=== PATIENT | female | born 1985 | race Caucasian/White ===

== ENCOUNTER 2021-07-17 08:50 | Emergency (ER) | payer BC, OTHER ==
[~2021-07-17] VITALS: Ht 175.3 cm; Wt 131.9 kg
[2021-07-17] MEDS ORDERED: ASPIRIN CHEWABLE 81 MG TABLET. PO ONE ×2 (09:15→11:15)
--- NOTE | 2021-07-17 09:19 | EKG ---
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
[2021-07-17] MEDS ORDERED: METOPROLOL TARTRATE 5 MG/5 ML VIAL. ONE (09:28)
--- NOTE | 2021-07-17 09:28 | PHYS DOC ---
Past History Past Medical History: No Pertinent History Past Surgical History: No Surgical History Smoking: Non-smoker Alcohol Use: Rarely Drug Use: None Adult General Chief Complaint Chief Complaint: CHEST PAIN HPI HPI Patient is a 35-year-old female presenting for palpitations. Reports she is otherwise healthy, no significant past medical issues, had history of taking OCPs but stopped this several months ago. Reports yesterday morning waking up and feeling heaviness in her chest, reports she was experiencing constant palpitations and has been fatigued and at times lightheaded and dizzy. Symptoms were constant since onset yesterday morning. She has never encountered an episode like this before. No tobacco, alcohol or other illicit drug use. No significant past medical history of early cardiac disease in family. She reports having thyroid checked in the past, there is question whether it was abnormal but she has never received medication for this. Review of Systems Review of Systems Fourteen body systems of review of systems have been reviewed. See HPI for pertinent positives and negative responses, other villaseñor all other systems are negative, non-pertinent or non-contributory Current Medications Current Medications Current Medications Medications (Trade) Dose Ordered Sig/Anthony Start Time Stop Time Status Last Admin Dose Admin Aspirin (Aspirin Chewable) 324 mg 1X ONCE 07/17/21 09:15 07/17/21 09:16 Fentanyl Citrate (Fentanyl 2ml Vial) 50 mcg 1X ONCE 07/17/21 09:30 07/17/21 09:31 UNV Allergies Allergies Allergies Coded Allergies Type Severity Reaction Last Updated Verified No Known Drug Allergies 07/17/21 No Physical Exam Physical Exam Constitutional: Well developed, well nourished, no acute distress, non-toxic appearance. HENT: Normocephalic, atraumatic, bilateral external ears normal, oropharynx moist, no oral exudates, nose normal. Eyes: PERRLA, EOMI, conjunctiva normal, no discharge. Neck: Normal range of motion, no tenderness, supple, no stridor. Cardiovascular: Heart rate tachycardic and irregular, no murmurs rubs or gallops Lungs & Thorax: Bilateral breath sounds clear to auscultation Abdomen: Bowel sounds normal, soft, no tenderness, no masses, no pulsatile masses. Nonsurgical abdomen, no peritoneal signs Skin: Warm, dry, no erythema, no rash. Back: No tenderness, no CVA tenderness. Extremities: No tenderness, no cyanosis, no clubbing, ROM intact, no edema. Neurologic: Alert and oriented X 3, grossly normal motor & sensory function, no focal deficits noted. Psychologic: Tearful affect, anxious mood Current Patient Data Vital Signs Vital Signs Date Time Temp Pulse Resp B/P (MAP) Pulse Ox O2 Delivery O2 Flow Rate FiO2 07/17/21 08:50 98.2 170 18 86/43 99 Room Air Vital Signs Date Time Temp Pulse Resp B/P (MAP) Pulse Ox O2 Delivery O2 Flow Rate FiO2 07/17/21 10:17 83 14 114/66 (82) 97 High Flow Nasal Cannula 07/17/21 08:50 98.2 Lab Results Laboratory Tests Test 07/17/21 09:18 White Blood Count 11.1 x10^3/uL Red Blood Count 4.61 x10^6/uL Hemoglobin 13.1 g/dL Hematocrit 39.4 % Mean Corpuscular Volume 86 fL Mean Corpuscular Hemoglobin 28 pg Mean Corpuscular Hemoglobin Concent 33 g/dL Red Cell Distribution Width 13.9 % Platelet Count 302 x10^3/uL Neutrophils (%) (Auto) 54 % Lymphocytes (%) (Auto) 36 % Monocytes (%) (Auto) 8 % Eosinophils (%) (Auto) 1 % Basophils (%) (Auto) 0 % Neutrophils # (Auto) 6.0 x10^3uL Lymphocytes # (Auto) 4.0 x10^3/uL Monocytes # (Auto) 0.9 x10^3/uL Eosinophils # (Auto) 0.1 x10^3/uL Basophils # (Auto) 0.0 x10^3/uL D-Dimer (Eleni) 0.35 mg/L Sodium Level 142 mmol/L Potassium Level 3.5 mmol/L Chloride Level 106 mmol/L Carbon Dioxide Level 28 mmol/L Anion Gap 8 Blood Urea Nitrogen 10 mg/dL Creatinine 0.8 mg/dL Estimated GFR (Cockcroft-Gault) 82.6 BUN/Creatinine Ratio 13 Glucose Level 111 mg/dL Calcium Level 8.4 mg/dL Magnesium Level 2.0 mg/dL Total Bilirubin 0.7 mg/dL Aspartate Amino Transf (AST/SGOT) 20 U/L Alanine Aminotransferase (ALT/SGPT) 29 U/L Alkaline Phosphatase 142 U/L Troponin I Quantitative < 0.017 ng/mL AC-Omb-E-Type Natriuretic Peptide 2820 pg/mL Total Protein 7.2 g/dL Albumin 3.5 g/dL Albumin/Globulin Ratio 0.9 Current Medications Medications (Trade) Dose Ordered Sig/Anthony Route PRN Reason Start Time Stop Time Status Last Admin Dose Admin Aspirin (Aspirin Chewable) 324 mg 1X ONCE PO 07/17/21 09:15 07/17/21 09:21 DC 07/17/21 09:26 Fentanyl Citrate (Fentanyl 2ml Vial) 50 mcg 1X ONCE IVP 07/17/21 09:30 07/17/21 09:31 DC 07/17/21 09:27 Etomidate (Amidate) 20 mg 1X ONCE INJ 07/17/21 09:30 07/17/21 09:31 DC 07/17/21 10:16 Metoprolol Tartrate (Lopressor Vial) 5 mg STK-MED ONCE .ROUTE 07/17/21 09:28 07/17/21 09:28 DC Metoprolol Tartrate (Lopressor Vial) 5 mg 1X ONCE IV 07/17/21 09:30 07/17/21 09:54 DC 07/17/21 09:37 Metoprolol Tartrate (Lopressor Vial) 5 mg 1X ONCE IV 07/17/21 09:45 07/17/21 09:54 DC 07/17/21 09:50 Metoprolol Tartrate (Lopressor Vial) 5 mg 1X ONCE IV 07/17/21 10:00 07/17/21 10:01 DC 07/17/21 09:52 EKG EKG EKG ordered and interpreted by myself at 092 7 hours as atrial fibrillation with RVR at 157 bpm, unremarkable intervals, no axis deviation, T wave inversion noted in lead III otherwise no acute ischemic findings, no STEMI Repeat EKG ordered and interpreted by myself after synchronized cardioversion at 1016 hrs. as sinus rhythm at 79 bpm, unremarkable intervals, no axis deviation, no acute ischemic findings, no STEMI Radiology/Procedures Radiology/Procedures EXAM: XR CHEST 1V 07/17/2021 9:20 AM CLINICAL INDICATION: Shortness of breath COMPARISON: None TECHNIQUE: AP upright view of the chest FINDINGS: The cardiomediastinal silhouette is normal. There is hazy opaci fication in the mid to lower lungs, likely due to superimposed soft tissue. No definite consolidation, pleural effusion, or pneumothorax. No acute osseous abnormality. IMPRESSION: No definite acute abnormality. Hazy opacification in the lung bases is likely due to superimposed soft tissue. Electronically signed by: Chayo Leon MD (07/17/2021 9:28 AM) [id number] Heart Score C/O Chest Pain: No HEART Score for Chest Pain: HEART Score for Chest Pain Response (Comments) Value History Moderately Suspicious 1 ECG Nonspecific Repolarizatio 1 Age < 45 0 Risk Factors 1 or 2 Risk Factors 1 Troponin < Normal Limit 0 Total 3 Risk Factors: Risk Factors: DM, Current or recent (<one month) smoker, HTN, HLP, family history of CAD, obesity. Risk Scores: Risk Factors: DM, Current or recent (<one month) smoker, HTN, HLP, family history of CAD, obesity. Course & Med Decision Making Course & Med Decision Making Airway patent, breathing unlabored, IV access and vitals obtained concerning for atrial fibrillation with RVR which was later confirmed by EKG No obvious identifiable causes based on history and physical examination. IV Lopressor 5 mg x 3 did not successfully convert rhythm. Verbal and written consent obtained for synchronized electric cardioversion which was performed and successfully converted patient back to normal sinus Patient monitored for 1 hour after moderate sedation and at baseline mentation/respiratory status that was confirmed by patient and at [facility] e. Patient asymptomatic. Cardiology services contacted and recommended aspirin and Toprol ER with instructions for outpatient echocardiogram and compliance monitor. She is pending TSH and PCR COVID-19 testing at end of ER visit Joint decision among all to discharge home given asymptomatic state of patient. Strict return precautions were discussed with good understanding. All questions and concerns addressed prior to ER departure Critical Care Time This patient required critical care. Due to the fact that the patient required a significant amount of one on one physician - patient contact time, ordering and review of studies, arranging urgent treatment with development of a management plan, evaluation of patients response to treatment with frequent reassessments, and discussions with other providers this patient required 40 minutes of critical care time. Critical care time was indicated due to the inherent instability and/or potential for instability in this patient. The critical care time that is allocated to this patient is above and beyond any time spent on any other billable procedures performed on this patient. Dragon Disclaimer Dragon Disclaimer This electronic medical record was generated, in whole or in part, using a voice recognition dictation system. Departure Departure: Impression: Primary Impression: Atrial fibrillation with RVR Disposition: HOME / SELF CARE / HOMELESS Condition: IMPROVED Referrals: TAHIR MACDONALD MD (PCP) BASHIR PENNINGTON MD Patient Instructions: Atrial Fibrillation Additional Instructions: As discussed prior to ER departure, you presented with an irregular heart rhythm and rate known as atrial fibrillation with rapid ventricular response. You did not respond to medications given and so, synchronized electric cardioversion was performed and successfully converted your rhythm back to normal sinus. Your condition was reviewed with cardiology services at [facility] and they agreed to ER intervention and work-up that was grossly unremarkable for any emergent or surgical issues. Given that you are young and in good health, decision was made to start you on low-dose 81 mg aspirin and heart rate controlling medication daily. The cardiology team should be contacting you to set up outpatient follow-up. I have attached their information to this dis charge packet. I recommend you call them immediately after ER departure and review your work-up today. You will be scheduled for an echocardiogram and also will be scheduled to receive a compliance monitor for home use until you can be seen by the telephone exchange operator in the clinic. If any concerning signs or symptoms present prior to outpatient follow-up please do not hesitate to come back for repeat evaluation. It was a pleasure to take care of you and I wish you the best going forward Scripts Metoprolol Succinate (TOPROL XL) 25 Mg Tab.er.24h 1 TAB PO DAILY for HEART RATE CONTROL for 30 Days, #30 TAB 0 Refills Prov: ALEXANDER RODRIGUEZ DO 07/17/21 Aspirin (ASPIRIN) 81 Mg Tab.chew 81 MG PO DAILY for AFIB for 90 Days, #90 TAB Prov: ALEXANDER RODRIGUEZ DO 07/17/21 Additional Procedures Additional Procedures : Additional Procedures: cardioversion/defib Progress Verbal and written consent obtained. Timeout performed. 50 mcg fentanyl and subsequent 20 etomidate administered for pain and sedation purposes. Synchronized cardioversion at 200 J delivered with immediate conversion of patient's atrial fibrillation with RVR back to normal sinus rhythm. Patient tolerated procedure well without any reported nor observed complications. Repeat EKG obtained confirming normal sinus rhythm. Patient monitored for greater than 1 hour after sedation medication and after numerous assessments by various healthcare providers and , all deemed safe for departure home MODERATE SEDATION ASSESSMENT RISKS/ALTERNATIVES Risks/Alternatives Risks and alternatives of this type of sedation and procedure discussed with: RISK/ALTERNATIVES DISCUSSED: Patient H & P ON CHART H & P H & P on chart and reviewed for co-morbid conditions and appropriate labs. H&P ON CHART: Yes STATUS PREG STATUS ASSESSED: Yes MEDS/ALLERGIES REVIEWED Meds/Allergies Reviewed Medications and Allergies including time and route of recently administered narcotics and sedatives. MEDS/ALLERGIES REVIEWED: Yes ASA RATING ASA RATING: II AIRWAY ASSESSMENT Airway Assessment Airway patency, oral function limitations, presence of caps, crowns, dentures, partials, and ability to extend neck assessed. AIRWAY ASSESSMENT: Yes MALLAMPATI SCORE MALLAMPATI SCORE: II PRE-SEDATION ASSESSMENT PRE-SEDATION PHYSICAL: Yes ALEXANDER RODRIGUEZ DO Jul 17, 2021 09:28
[2021-07-17] MEDS ORDERED: ETOMIDATE 40 MG/20 ML VIAL. INJ ONE (09:30)
[2021-07-17] MEDS ORDERED: METOPROLOL TARTRATE 5 MG/5 ML VIAL. IV ONE ×3 (09:30→10:00)
--- NOTE | 2021-07-17 09:30 | RAD ---
EXAM: XR CHEST 1V 07/17/2021 9:20 AM CLINICAL INDICATION: Shortness of breath COMPARISON: None TECHNIQUE: AP upright view of the chest FINDINGS: The cardiomediastinal silhouette is normal. There is hazy opacification in the mid to lowe r lungs, likely due to superimposed soft tissue. No definite consolidation, pleural effusion, or pneu mothorax. No acute osseous abnormality. IMPRESSION: No definite acute abnormality. Hazy opacification in the lung bases is likely due to sup erimposed soft tissue. Electronically signed by: Chayo Leon MD (07/17/2021 9:28 AM) [id number]
[2021-07-17 09:39] LABS: BASO % 0 % (0-3); EOS # 0.1 x10^3/uL (0.0-0.7); EOS % 1 % (0-3); HEMATOCRIT 39.4 % (36.0-47.0); HEMOGLOBIN 13.1 g/dL (12.0-15.5); LYMPH % 36 % (24-48); MEAN CORPUSCULAR HEMOGLOBIN 28 pg (25-35); MEAN CORPUSCULAR HGB CONC 33 g/dL (31-37); MEAN CORPUSCULAR VOLUME 86 fL (79-100); MONO # 0.9 x10^3/uL (0.0-1.1); MONO % 8 % (0-9); NEUT % 54 % (31-73); PLATELET COUNT 302 x10^3/uL (140-400); RED BLOOD COUNT 4.61 x10^6/uL (3.50-5.40); RED CELL DISTRIBUTION WIDTH 13.9 % (11.5-14.5); WHITE BLOOD COUNT 11.1 x10^3/uL (4.0-11.0)
[2021-07-17 09:56] LABS: CALCIUM 8.4 mg/dL (8.5-10.1); CREATININE 0.8 mg/dL (0.6-1.0); GFR 82.6; POTASSIUM 3.5 mmol/L (3.5-5.1)
[2021-07-17 10:09] LABS: ALBUMIN 3.5 g/dL (3.4-5.0); ALBUMIN/GLOBULIN RATIO 0.9 (1.0-1.7); TOTAL BILIRUBIN 0.7 mg/dL (0.2-1.0); TOTAL PROTEIN 7.2 g/dL (6.4-8.2)
--- NOTE | 2021-07-17 10:22 | EKG ---
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
[2021-07-17 11:14] LABS: BARBITURATES NEG (NEG); BENZODIAZEPINES NEG (NEG); CANNABINOIDS NEG (NEG); COCAINE NEG (NEG); METHADONE NEG (NEG); OPIATES NEG (NEG); PHENCYCLIDINE NEG (NEG)
[2021-07-17] MEDS ORDERED: METOPROLOL SUCC 24HR ER 25 MG TAB.ER.24H. PO ONE (11:15)
[2021-07-17] MEDS ORDERED: METO25TA2 PO (11:16)
[2021-07-17] MEDS ORDERED: ASPI-630 PO (11:16)
[2021-07-17 11:17] LABS: AMPHETAMINE/METHAMPHETAMINE NEG (NEG)
[2021-07-17 11:45] VITALS: BP 123/73
== END 2021-07-17 11:55 | disposition home or self-care (01) ==
LOC: ER 08:50
DX: I48.20 Chronic atrial fibrillation, unspecified (principal); R42 Dizziness and giddiness; Z20.822 Contact with and (suspected) exposure to COVID-19
CPT/HCPCS: 36415; 71045; 80053; 80307; 83735; 83880; 84443; 84484; 85025; 85379; 93005; 96374; 96375; 99285; C9803; J3010; J3490; U0003

== ENCOUNTER → 2021-07-18 | Outpatient (CLI) | payer BC ==
[2021-07-17 11:45] VITALS: BP 123/73
[~2021-07-18] MED LIST: ASPI-630 PO; METO25TA2 PO
--- NOTE | 2021-07-19 09:00 | CARD ---
MR#: [id number] Date of Study: 07/18/2021 Ordering Physician: BASHIR MA, Referring Physician: BASHIR MA, Tech: Arely Velasquez, [facility] APPROVED REPORT EXAM: Two-dimensional and M-mode echocardiogram with Doppler and color Doppler. Other Information Quality : AverageHR: 72bpm INDICATION Atrial Fibrillation 2D DIMENSIONS RVDd3.7 (2.9-3.5cm)Left Atrium(2D)3.6 (1.6-4.0cm) IVSd0.8 (0.7-1.1cm)Aortic Root(2D)2.7 (2.0-3.7cm) LVDd4.5 (3.9-5.9cm)LVOT Diameter2.1 (1.8-2.4cm) PWd0.9 (0.7-1.1cm)LVDs2.5 (2.5-4.0cm) FS (%) 43.9 %SV69.6 ml LVEF(%)75.3 (>50%) Aortic Valve AoV Peak Werner.132.0cm/sAoV VTI26.9cm AO Peak GR.7.0mmHgLVOT Peak Werner.111.5cm/s LVOT VTI 23.26cmAO Mean GR.4mmHg CARLOS (VMAX)2.01ol4HLB (VTI)2.96cm2 Mitral Valve MV E Kdjxwwgb06.9cm/sMV E Peak Gr.3mmHg MV DECEL [id number] A Zrpuvwvi81.0cm/s MV E Mean Gr.2mmHgE/A Ratio1.5 Pulmonary Valve PV Peak Mwzbwqfi726.5cm/sPV Peak Grad.4mmHg Tricuspid Valve TR P. Vaavubpn603fs/sRAP [id number] TR Peak Gr.51ntCuJKDP46ygAe LEFT VENTRICLE The left ventricle is normal size. There is normal left ventricular wall thickness. The left ventricu lar systolic function is normal and the ejection fraction is within normal range. The Ejection Fracti on is 55-60%. There is normal LV segmental wall motion. The left ventricular diastolic function and f illing is normal for age. RIGHT VENTRICLE The right ventricle is normal size. There is normal right ventricular wall thickness. The right ventr icular systolic function is normal. ATRIA The left atrium size is normal. The right atrium size is normal. The interatrial septum is intact wit h no evidence for an atrial septal defect or patent foramen ovale as noted on 2-D or Doppler imaging. AORTIC VALVE The aortic valve is normal in structure and function. Doppler and Color Flow revealed no significant aortic regurgitation. There is no significant aortic valvular stenosis. Calculated aortic valve area is 3.0 cm2 with maximum pressure gradient of 7 mmHg and mean pressure gradient of 4 mmHg. MITRAL VALVE The mitral valve is normal in structure and function. There is no evidence of mitral valve prolapse. There is no mitral valve stenosis. Doppler and Color-flow revealed trace mitral regurgitation. TRICUSPID VALVE The tricuspid valve is normal in structure and function. Doppler and Color Flow revealed trace tricus pid regurgitation with an estimated RVSP of 18 mm Hg. There is no tricuspid valve stenosis. PULMONIC VALVE The pulmonic valve is not well visualized. GREAT VESSELS The aortic root is normal in size. The ascending aorta is normal in size. The IVC is normal in size a nd collapses >50% with inspiration. PERICARDIAL EFFUSION There is no evidence of significant pericardial effusion. Critical Notification Critical Value: No <Conclusion> The left ventricular systolic function is normal and the ejection fraction is within normal range. Th e Ejection Fraction is 55-60%. There is normal LV segmental wall motion. Signed by : Bashir Ma, Electronically Approved : 07/19/2021 08:59:55
== END ==
LOC: ECHO 10:00
PROVIDERS: ATTEND Internal Medicine Cardiovascular Disease
DX: I48.91 Unspecified atrial fibrillation (principal)
CPT/HCPCS: 93306